=== PATIENT | female | born 1995 | race Caucasian/White ===

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

== ENCOUNTER 2017-06-10 07:59 | Emergency (ER) | payer BC ==
[~2017-06-10] VITALS: Ht 170.2 cm; Wt 84.5 kg
[~2017-06-10 07:59] MED LIST changes: -IBUP-1050 PO
[2017-06-10 08:04] VITALS: TEMP 36.7; Ht 170.2 cm; Wt 84.5 kg
[2017-06-10] MEDS ORDERED: KETOROLAC TROMETHAMINE 30 MG/ML VIAL IV STA (08:28)
[2017-06-10] MEDS ORDERED: SODIUM CHLORIDE 0.9% 1000ML 1,000 ML IV STA (08:28)
[2017-06-10] MEDS ORDERED: DEXAMETHASONE **PF** INJ 10 MG/ML VIAL IV ONE (08:30)
[2017-06-10] MEDS ORDERED: AMPH20CA3 PO (09:01)
[2017-06-10] MEDS ORDERED: BSP/5 PO (09:01)
[2017-06-10] MEDS ORDERED: VENL150T33 PO (09:01)
[2017-06-10 09:08] LABS: BASO % 0.3 %; BASO ABS # 0.03 K/uL (0-0.2); COMPLETE YES; HEMATOCRIT 45.3 % (37-47); IG% 0.2 %; LYMPH % 23.5 %; LYMPH ABS # 2.81 K/uL (1.2-3.4); MEAN CELL VOLUME 90.1 fL (80-100); MEAN CORPUSCULAR HEMOGLOBIN 31.6 pg (25-34); MEAN CORPUSCULAR HGB CONC 35.1 g/dl (32-36); MONO % 5.1 %; NEUT % 70.9 %; PLATELET COUNT 353 K/uL (130-400); RED BLOOD COUNT 5.03 M/uL (4.2-5.4); WHITE BLOOD COUNT 11.94 K/uL (4.8-10.8)
[2017-06-10 09:15] LABS: URINE APPEARANCE CLEAR (CLEAR); URINE BILIRUBIN NEG (NEG); URINE COLOR YELLOW; URINE NITRITE NEG (NEG); URINE SPECIFIC GRAVITY 1.016 (1.000-1.030); UROBILINOGEN NEG (NEG); ZZUR CULT IF INDIC CLEAN CATCH NO
[2017-06-10 09:21] LABS: BUN/CREATININE RATIO 13.9 (10-20); CALCIUM 9.8 mg/dl (8.5-10.1); CREATININE 0.66 mg/dl (0.60-1.20); POTASSIUM 3.6 mmol/L (3.5-5.1)
[2017-06-10 09:33] LABS: MANUAL MICROSCOPIC REQUIRED? NO; REVIEW REQ? NO
--- NOTE | 2017-06-10 10:44 | DIAGNOSTIC IMAGING REPORT ---
CT SCAN OF THE NECK WITH IV CONTRAST; CT SCAN OF THE FACIAL BONES WITHOUT IV CONTRAST CLINICAL HISTORY: Right-sided facial pain. Right-sided neck pain and swelling. COMPARISON STUDY: No priors. TECHNIQUE: Unenhanced high-resolution CT scan of the facial bones is performed. Subsequently, following the IV administration of 93 cc of Optiray 320, CT scan of the soft tissues of the neck was performed from the skull base to the upper chest. Images for both examinations are reviewed in the axial, sagittal, and coronal planes. IV contrast was administered without complication. A dose lowering technique was utilized adhering to the principles of ALARA. CT DOSE: 1116.01 mGy.cm FINDINGS: Pharynx: The nasopharynx, oropharynx, and laryngeal pharynx are normal in appearance. The pharyngeal airway is widely patent. There is no evidence of mass lesion. The vocal cords are symmetric. The parapharyngeal fat is well maintained. The prevertebral/retropharyngeal soft tissues are within normal limits. Soft tissues: No soft tissue inflammation or collection is identified. Lymphadenopathy: No cervical lymphadenopathy is seen Thyroid: Normal in size and attenuation. Salivary glands: The parotid and submandibular glands are within normal limits. Brain parenchyma: The visualized brain parenchyma at the skull base is normal in appearance. Vascular structures: The carotid arteries and jugular veins are widely patent bilaterally. Skeletal structures: Imaged portions of the calvarium at the skull base are within normal limits. The cervical spine appears intact. Facial bones end orbits: The skeletal structures are well mineralized. There is no evidence of facial bone fracture. The bony orbits are intact and the orbital contents are within normal limits. The zygomatic arches, nasal bones, and pterygoid plates are preserved. A right nasal piercing is noted. The maxilla and mandible are intact. There are no layering blood products within the paranasal sinuses. There is no significant periodontal disease. Sinuses and mastoids: The visualized paranasal sinuses are clear. The mastoid air cells are well pneumatized. Lung apices: Visualized apical lung parenchyma is clear. Residual thymic tissue is noted in the anterior mediastinum. IMPRESSION: 1. There is no evidence of facial bone fracture. 2. Unremarkable contrast-enhanced CT scan of the neck. Electronically signed by: Junior Brooks M.D. 06/10/2017 10:42 AM Dictated Date/Time: 06/10/2017 10:33 AM
--- NOTE | 2017-06-10 11:29 | EMERGENCY ROOM VISIT NOTE ---
History First contact with patient: 08:16 Chief Complaint: OTHER COMPLAINT Stated Complaint: LYMPH NODES SWELLING,R SIDE OF FACE SWOLLEN,PAIN History of Present Illness The patient is a 22 year old female who presents to the Emergency Room with complaints of right sided face and neck swelling/pain. 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 She states that she waited for a while to see if it would go away, when it did not improve she saw her doctor who put her on muscle relaxers, but she states these did not really help. She states her neck pain has gotten worse over the past week or so, she had a coworker look who told her that they thought her lymph nodes are swollen. She also feels that the right side of her face is becoming swollen as well, and she feels all of this has gotten worse today. She states her pain is constant, worse with flexing her neck and turning her neck to the right and left, better with rest, was not improved with ibuprofen, rates as /10. She states she has not taken any medications today for the pain. She saw her PCP 2 days ago, was placed on prednisone and told to do warm compresses to the area, she states that this does not seem to be helping. She denies any headaches, vision changes, neck stiffness or pain in the midline neck, difficulty swallowing, tongue or lip swelling, fevers/chills, nausea or vomiting, chest pain, difficulty breathing, abdominal pain, urinary symptoms, rash. Review of Systems A complete 10 point review of systems was reviewed with the patient with pertinent positives and negatives as per history of present illness. All else were negative. Past Medical/Surgical History Medical Problems: (1) Anxiety State Nos (2) Constipation (3) Depressive Disorder Nec Family History Diabetes mellitus Hypertension Kidney disease Kidney stones Social History Smoking Status: Never Smoker Alcohol Use: none Drug Use: none Marital Status: single Housing Status: lives with family Occupation Status: student Current/Historical Medications Scheduled Amphetamine-Dextroamphetamine 20MG (Adderall Xr 20MG), 20 MG PO DAILY Buspirone HCl (Buspirone HCl), 5 MG PO BID Epinephrine (Epipen), 0.3 MG IM UD Venlafaxine Hcl (Venlafaxine Hcl Er), 150 MG PO DAILY Physical Exam Vital Signs Date Time Temp Pulse Resp B/P (MAP) Pulse Ox O2 Delivery O2 Flow Rate FiO2 06/10/17 13:32 82 16 107/78 98 06/10/17 12:22 80 16 118/73 98 Room Air 06/10/17 10:17 80 20 142/85 100 06/10/17 08:04 36.7 119 17 137/81 100 Room Air Physical Exam CONSTITUTIONAL: No acute distress, nontoxic appearing. Mildly dehydrated. Well appearing and well nourished. Alert and oriented X 4 with normal affect. HEENT: Normocephalic, atraumatic. Pupils equal, round and reactive to light, EOMI. TMs normal. Pharynx normal. No tongue or uvular swelling, no trismus. No edema of the mouth floor palpated. Tacky mucous membranes. NECK: Supple, full active range of motion without discomfort. There is mild anterior and posterior cervical adenopathy noted on the right, mildly tender to palpation. There is very minimal swelling appreciated to the right facial and lateral neck area as compared to the left. There is no erythema, warmth, significant tenderness, fluctuance or induration. There is no crepitus. RESPIRATORY: Clear to auscultation bilaterally with no wheezing, crackles, rhonchi or stridor. Equal expansion bilaterally. CARDIOVASCULAR: Regular rate and rhythm with no murmurs, rubs or gallops. Normal peripheral perfusion. No edema. GASTROINTESTINAL: Soft, nontender, nondistended. Bowel sounds present in all quadrants. MUSCULOSKELETAL: Full range of motion of all joints without discomfort. INTEGUMENTARY: No rash or other significant dermatologic conditions noted. NEUROLOGIC: Cranial nerves II-XII grossly intact. No focal neurologic deficits noted. Medical Decision & Procedures ER Provider Diagnostic Interpretation: CT SCAN OF THE NECK WITH IV CONTRAST; CT SCAN OF THE FACIAL BONES WITHOUT IV CONTRAST CLINICAL HISTORY: Right-sided facial pain. Right-sided neck pain and swelling. COMPARISON STUDY: No priors. TECHNIQUE: Unenhanced high-resolution CT scan of the facial bones is performed. Subsequently, following the IV administration of 93 cc of Optiray 320, CT scan of the soft tissues of the neck was performed from the skull base to the upper chest. Images for both examinations are reviewed in the axial, sagittal, and coronal planes. IV contrast was administered without complication. A dose lowering technique was utilized adhering to the principles of ALARA. CT DOSE: 1116.01 mGy.cm FINDINGS: Pharynx: The nasopharynx, oropharynx, and laryngeal pharynx are normal in appearance. The pharyngeal airway is widely patent. There is no evidence of mass lesion. The vocal cords are symmetric. The parapharyngeal fat is well maintained. The prevertebral/retropharyngeal soft tissues are within normal limits. Soft tissues: No soft tissue inflammation or collection is identified. Lymphadenopathy: No cervical lymphadenopathy is seen Thyroid: Normal in size and attenuation. Salivary glands: The parotid and submandibular glands are within normal limits. Brain parenchyma: The visualized brain parenchyma at the skull base is normal in appearance. Vascular structures: The carotid arteries and jugular veins are widely patent bilaterally. Skeletal structures: Imaged portions of the calvarium at the skull base are within normal limits. The cervical spine appears intact. Facial bones end orbits: The skeletal structures are well mineralized. There is no evidence of facial bone fracture. The bony orbits are intact and the orbital contents are within normal limits. The zygomatic arches, nasal bones, and pterygoid plates are preserved. A right nasal piercing is noted. The maxilla and mandible are intact. There are no layering blood products within the paranasal sinuses. There is no significant periodontal disease. Sinuses and mastoids: The visualized paranasal sinuses are clear. The mastoid air cells are well pneumatized. Lung apices: Visualized apical lung parenchyma is clear. Residual thymic tissue is noted in the anterior mediastinum. IMPRESSION: 1. There is no evidence of facial bone fracture. 2. Unremarkable contrast-enhanced CT scan of the neck. Laboratory Results 06/10/17 08:45 Red Blood Count 5.03, Mean Corpuscular Volume 90.1, Mean Corpuscular Hemoglobin 31.6, Mean Corpuscular Hemoglobin Concent 35.1, Mean Platelet Volume 10.0, Neutrophils (%) (Auto) 70.9, Lymphocytes (%) (Auto) 23.5, Monocytes (%) (Auto) 5.1, Eosinophils (%) (Auto) 0.0, Basophils (%) (Auto) 0.3, Neutrophils # (Auto) 8.47, Lymphocytes # (Auto) 2.81, Monocytes # (Auto) 0.61, Eosinophils # (Auto) 0.00, Basophils # (Auto) 0.03 06/10/17 08:45 Test 06/10/17 08:28 06/10/17 08:40 06/10/17 08:45 Urine Color YELLOW Urine Appearance CLEAR (CLEAR) Urine pH 5.0 (4.5-7.5) Urine Specific [place] 1.016 (1.000-1.030) Urine Protein NEG (NEG) Urine Glucose (UA) NEG (NEG) Urine Ketones NEG (NEG) Urine Occult Blood NEG (NEG) Urine Nitrite NEG (NEG) Urine Bilirubin NEG (NEG) Urine Urobilinogen NEG (NEG) Urine Leukocyte Esterase NEG (NEG) White Blood Count 11.94 K/uL (4.8-10.8) Red Blood Count 5.03 M/uL (4.2-5.4) Hemoglobin 15.9 g/dL (12.0-16.0) Hematocrit 45.3 % (37-47) Mean Corpuscular Volume 90.1 fL (80-100) Mean Corpuscular Hemoglobin 31.6 pg (25-34) Mean Corpuscular Hemoglobin Concent 35.1 g/dl (32-36) Platelet Count 353 K/uL (130-400) Mean Platelet Volume 10.0 fL (7.4-10.4) Neutrophils (%) (Auto) 70.9 % Lymphocytes (%) (Auto) 23.5 % Monocytes (%) (Auto) 5.1 % Eosinophils (%) (Auto) 0.0 % Basophils (%) (Auto) 0.3 % Neutrophils # (Auto) 8.47 K/uL (1.4-6.5) Lymphocytes # (Auto) 2.81 K/uL (1.2-3.4) Monocytes # (Auto) 0.61 K/uL (0.11-0.59) Eosinophils # (Auto) 0.00 K/uL (0-0.5) Basophils # (Auto) 0.03 K/uL (0-0.2) RDW Standard Deviation 38.1 fL (36.4-46.3) RDW Coefficient of Variation 11.8 % (11.5-14.5) Immature Granulocyte % (Auto) 0.2 % Immature Granulocyte # (Auto) 0.02 K/uL (0.00-0.02) Anion Gap 5.0 mmol/L (3-11) Est Creatinine Clear Calc Drug Dose 151.9 ml/min Estimated GFR () 147.4 Estimated GFR (Non- 127.2 BUN/Creatinine Ratio 13.9 (10-20) Lactic Acid Level 1.0 mmol/L (0.4-2.0) Calcium Level 9.8 mg/dl (8.5-10.1) Monoscreen NEG (NEG) Medications Administered Medications (Trade) Dose Ordered Sig/Zurdo Route Start Time Stop Time Status Last Admin Dose Admin Sodium Chloride 1,000 ml @ 999 mls/hr Q1H1M STAT IV 06/10/17 08:28 06/10/17 09:28 DC 06/10/17 08:45 999 MLS/HR Dexamethasone Sodium Phosphate (Dexamethasone Inj Pf) 10 mg NOW ONCE IV 06/10/17 08:30 06/10/17 08:32 DC 06/10/17 08:45 10 MG Ketorolac Tromethamine (Toradol Inj) 15 mg NOW STAT IV 06/10/17 08:28 06/10/17 08:32 DC 06/10/17 08:45 15 MG Medical Decision CC: Patient presenting with complaint of right-sided face and neck pain/swelling Interpretation of Labs: Mild leukocytosis, no anemia, no significant electrolyte abnormalities, normal renal function, normal lactic acid. Monospot negative. UA negative, negative urine . Differential Diagnosis: Includes, but not limited to musculoskeletal strain/ sprain, reactive lymphadenopathy, mononucleosis, other viral illness, cellulitis , deep space abscess, among others. Medication Reconciliation: I attest that I have personally reviewed the patient' s current medication list. Vital signs review: I reviewed the patient's vital signs and interpret them as follows: T: Afebrile; BP: Normotensive; HR: Tachycardic; RR: Within normal limits; Pulse Ox: Within normal limits on room air. Blood pressure screening: The patient was found to have normal blood pressure on screening and does not require follow-up for repeat blood pressure check. Summary: Patient was evaluated at bedside, history and physical exam performed. Patient is alert and oriented, in no acute distress and nontoxic appearing, resting calmly in the stretcher. Patient has very mild right-sided facial and neck swelling with minimal anterior and posterior adenopathy on palpation. Full range of motion of the neck with no nuchal rigidity, neuro exam is normal, she has no numbness, weakness, or radicular type pain to suggest spinal process for pain. Patient is quite concerned about her persistent symptoms, stating that she wants to have "a full workup done." Orders were placed at bedside for labs, Monospot, UA and urine , IV fluids for hydration, IV decadron and Toradol, and CT face/soft tissue neck with IV contrast to evaluate for cellulitis and deep space abscess. Patient discussed with Dr. Kahn, who agrees with my assessment and plan. Labs reviewed as above, no significant abnormalities. Monospot is negative. CT imaging reviewed, no acute abnormalities noted. Patient reassessed multiple times throughout ED stay, patient reports she is improving after IV fluids and medications, states her pain is also improved. Patient was updated on all results and plan for discharge home, she was encouraged to follow closely with her PCP for ongoing management of her neck pain. I did also suggest the patient that she may benefit from physical therapy. She was also given strict return precautions for any worsening symptoms, she verbalizes understanding. Patient was discharged home in stable condition and ambulatory. Head Trauma GCS Score: 15 Medication Reconcilliation Current Medication List: was personally reviewed by me Impression Primary Impression: Lymphadenopathy of right cervical region Departure Information Dispostion Home / Self-Care Condition GOOD Referrals No Doctor, Assigned (PCP) Patient Instructions ED Cervical Adenitis No Abx Tx, My [facility] Additional Instructions Continue your prescribed prednisone until the course is completed. For management of pain, you may take the following medications: - Ibuprofen 600 mg every 6-8 hours. Do not take more than 2400 mg in a 24 hour period. - Tylenol 1000 mg every 8 hours. Do not take more than 3000 g in a 24 hour period. - For best results, you may alternate between the Tylenol and the ibuprofen every 4 hours. Continue to apply warm compresses to the neck to help reduce pain and discomfort. Follow closely with your primary care provider in the next few days for recheck. Please return to the emergency Department for significantly worsening pain, increased swelling of the face or neck, severe headache, difficulty swallowing, trouble breathing, swelling of the tongue or throat, fevers greater than 101.5, or feeling ill. Work Instructions Return To Work: 1 day
[2017-06-10 13:32] VITALS: BP 107/78; PULSE 82; O2SAT 98
== END 2017-06-10 13:32 | disposition home or self-care (01) ==
LOC: C.EDB 08:02
DX: R59.1 Generalized enlarged lymph nodes (principal); F41.9 Anxiety disorder, unspecified; F32.9 Major depressive disorder, single episode, unspecified; Z83.3 Family history of diabetes mellitus; Z84.1 Family history of disorders of kidney and ureter; Z79.899 Other long term (current) drug therapy

== ENCOUNTER → 2017-09-08 | Outpatient (CLI) | payer BC ==
[~2017-09-08] MED LIST changes: +AMPH20CA3 PO; +BSP/5 PO; -LORA-741 PO; +VENL150T33 PO
== END | disposition home or self-care (01) ==
LOC: C.LABSPEC 15:41
PROVIDERS: ATTEND Physician Assistant
DX: N92.1 Excessive and frequent menstruation with irregular cycle (principal)